=== PATIENT | female | born 1935 | race Caucasian/White ===

== ENCOUNTER 2023-10-16 07:15 | Emergency (ER) | payer MEDICARE, BC, SELFPAY ==
[2023-10-16 07:24] VITALS: BP 155/76; PULSE 61; RESP 16; TEMP 36; O2SAT 95; BMI 23.9
--- NOTE | 2023-10-16 07:57 | ED.GENADULT ---
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 According to her daughter she does have a history of occasional UTIs in the past. She has been having symptoms of dysuria and urgency ongoing for about 6 months. Apparently she had had a visit to her doctor in [place] a couple of weeks ago. She had a urinalysis that was reportedly ?normal. ? She has been referred to a urologist and has an appointment to see Urology at [facility] in [place] on October 24. She has otherwise been in her usual state of health lately. No new urinary symptoms, abdominal pain, flank pain, fever, chills, nausea, or vomiting. Since around midnight last night she has had bleeding. The patient thinks is probably vaginal bleeding. It sounds like she is passing tsp in table spoons of blood. Sometimes with clots. It is up to soak her panty liner, but not soaking through that. She is not lightheaded or dizzy. She is not anticoagulated she has a distant history of a hysterectomy done 30 or 40 years ago. She does not recall if she had her cervix removed. Related Data Home Medications ?Medication ?Instructions ?Recorded ?Confirmed alendronate 70 mg tablet 70 mg PO 10/16/23 amlodipine 5 mg tablet 5 mg PO DAILY 10/16/23 10/16/23 buspirone 15 mg tablet 15 mg PO DAILY 10/16/23 10/16/23 losartan 50 mg tablet 50 mg PO QAM 10/16/23 10/16/23 metoprolol tartrate 25 mg tablet 25 mg PO BID 10/16/23 10/16/23 paroxetine HCl 10 mg tablet 20 mg PO QAM 10/16/23 10/16/23 rosuvastatin 10 mg tablet 10 mg PO 3XW 10/16/23 10/16/23 Allergies Allergy/AdvReac Type Severity Reaction Status Date / Time No Known Drug Allergies Allergy Verified 10/16/23 08:35 PFSH PFSH Social History Smoking Status: Never smoker How often do you have a drink containing alcohol: never AUDIT-C Alcohol total score: 0 Non-prescribed substance use: denies use Exam Narrative: Exam Narrative: Constitutional: Appears well-developed and well-nourished. Alert. Conversant but a vague historian.. Non toxic. HENT: Head: Atraumatic. Nose: Nose normal. Mouth/Throat: Oral mucosa is clear and moist. no trismus. Pharynx normal. Tonsils symmetric. No tonsillar enlargement, erythema, or exudate. Eyes: Conjunctivae normal. EOM normal. Pupils equal, round, and reactive to light. No scleral icterus. Neck: Normal range of motion. Neck supple. No tracheal deviation present. Cardiovascular: Normal rate, regular rhythm. No gallop. No friction rub. No murmur heard. Symmetric radial artery pulses Pulmonary/Chest: Effort normal. No stridor. No respiratory distress. No wheezes. No rales. No rhonchi . No tenderness. Abdominal: Soft. Bowel sounds normal. No distension. No mass. No tenderness. No rebound. No guarding. No CVA tenderness. Healed abdominal scars from previous surgeries. Pelvic: Performed with female hand cultivator. No active bleeding. Vulva is externally normal. Labia majora and minora are normal. No active bleeding. Vaginal introitus is normal. I do not see any discharge, ulcers or lesions. External urethra appears normal. During the pelvic exam I did assist the nurse and do this drills straight cath and we were able to obtain frankly bloody urine through the catheter. At this point I think this is pretty indicative that the source of bleeding was not vaginal, but was in fact urinary. Perineum, gluteal cleft, external rectum normal. No sign of bleeding there. Musculoskeletal: RUE: Normal range of motion. No tenderness. No deformity LUE: Normal range of motion. No tenderness. No deformity RLE: Normal range of motion. No edema. No tenderness. No deformity LLE: Normal range of motion. No edema. No tenderness. No deformity Neurological: Alert and oriented to person, place, and time. Normal strength. CN II-VII intact. No sensory deficit. GCS eye subscore is 4. GCS verbal subscore is 5. GCS motor subscore is 6. Normal coordination Skin: Skin is warm and dry. No rash noted. No pallor. Normal capillary refill. Psychiatric: Normal mood. Normal affect. Const: Vital Signs, click to edit/add: Vital Signs - 24 hr 10/16/23 07:24 Temperature 96.8 F L Pulse Rate [Pulse Oximeter] 61 Respiratory Rate 16 Blood Pressure [Ri ght Upper Arm] 155/76 H Pulse Oximetry 95 Oxygen Delivery Me thod Room Air Course Vital Signs Vital signs: Initial Vital Signs Temperature 96.8 F L 10/16/23 07:24 Temperature Source Temporal Artery Scan 10/16/23 07:24 Pulse Rate 61 10/16/23 07:24 Respiratory Rate 16 10/16/23 07:24 Blood Pressure 155/76 H 10/16/23 07:24 Blood Pressure Mean 102 10/16/23 07:24 Pulse Oximetry 95 10/16/23 07:24 Oxygen Delivery Method Room Air 10/16/23 07:24 Vital Signs Temperature 96.8 F L 10/16/23 07:24 Pulse Rate 61 10/16/23 07:24 Respiratory Rate 16 10/16/23 07:24 Blood Pressure 155/76 H 10/16/23 07:24 Pulse Oximetry 95 10/16/23 07:24 Oxygen Delivery Method Room Air 10/16/23 07:24 Temperature 96.8 F L 10/16/23 07:24 Pulse Rate 61 10/16/23 07:24 Respiratory Rate 16 10/16/23 07:24 Blood Pressure 155/76 H 10/16/23 07:24 Pulse Oximetry 95 10/16/23 07:24 Oxygen Delivery Method Room Air 10/16/23 07:24 Medical Decision Making [facility] Narrative Medical decision making narrative: 87-year-old female presents to the ER today with concern for ?vaginal bleeding? that began overnight. Initially was unclear where the true source of the bleeding was. Patient was fairly sure this was not rectal bleeding, but was unsure if the bleeding was possibly urinary or vaginal. Differential would include vaginal sources such as vaginitis, external vulvar lesions, vulvar cancer, vaginal cancer, vaginal trauma. Patient has had a distant history of hysterectomy but is not sure if she has cervix still in place. Differential would potentially include bleeding cervical cancer as well. Also consider non vaginal causes of bleeding such as hematuria, rectal bleeding, hemorrhoid, fissure, lower GI bleed. She was hemodynamically stable. Afebrile. Nontoxic. Patient does have a bovine aortic valve but is not anticoagulated. She says she occasionally takes baby aspirin but no routine anti-platelet use. She describes probably tsp to tbsp of blood in her panty liners overnight. She is not describing a hemodynamically significant amount of blood loss. At this point only she needs laboratory workup to check hemoglobin. She denies any history of kidney problems. Pelvic exam revealed no external source of vaginal bleeding. During pelvic exam we did do a straight catheter and she did have frankly bloody urine through the catheter. No clots or signs that she is developing urinary obstruction. Actually, I suspect she had been having incontinent urinary leakage or night that caused the bloody urine to soak her panty liner. Urinalysis with micro shows hematuria as well as pyuria, bacteriuria, positive nitrate. In the setting highly indicative for UTI. Patient and her daughter recall that she has been on a couple of antibiotics recently for bladder infections but they are not sure which 1. I contacted the [facility] in [place]. They indicate that she was on Macrobid in July and Bactrim and June. No antibiotics filled IV since then. Based on that will put the patient on cephalexin 500 b.i.d. for 7 days (Inst[facility]) to treat UTI. Will send urine culture to confirm sensitivities. At this point she has he hematuria but no other symptoms from UTI. There is no evidence for pyelonephritis, urosepsis. At this point an oblique she needs laboratory workup, admission for IV antibiotics or CT scan. Patient and her daughter are agreeable to a plan for outpatient treatment. Precautions for return to the ER if she does develop worsening symptoms or signs of sepsis were carefully reviewed. They verbalized understanding. Incidentally, the pharmacist in [facility] in [place] indicates that she is on amlodipine 5 mg daily for high blood pressure. She had been on losartan and metoprolol for blood pressure. She felt a 90 day supply of those 2 medications in June but has not gotten them refilled. He wonders if she is due for refill or if her doctor may have stopped those medications. Discussed with the patient and her daughter. They are not sure. They will recheck with her primary care provider to have a blood pressure check and review their medication regimen within 1-2 weeks. Lab Data Labs: Lab Results 10/16/23 Range/Units Unknown Urine Color Red A (Yellow) Urine Appearance Cloudy A (Clear) Urine pH 8.5 (5.0-8.5) Ur Specific [place] 1.015 (1.000-1.030) Urine Protein 3+ A (Negative) Urine Glucose (UA) Negative (Negative) Urine Ketones Trace A (Negative) Urine Blood 3+ A (Negative) Urine Nitrite Positive A (Negative) Urine Bilirubin 2+ A (Negative) Urine Urobilinogen 1.0 (0.2-1.0) Ur Leukocyte Esterase 3+ A (Negative) Urine RBC >100 A (0-2) Urine WBC 10-25 A (0-5) Ur Squamous Epith Cells Few (None-Few) Urine Bacteria Moderate A (None) Discharge Plan Discharge Clinical Impression: Acute UTI, Hematuria Patient Disposition: Home, Self-Care Condition: Stable Instructions: Hematuria (ED), Urinary Tract Infection in Older Adults (ED) Additional Instructions: As we discussed, we suspect that the bloody or seeing in your urine is being caused by a bladder infection. We are going to treat this infection with a course of antibiotics. Take the cephalexin twice a day for 7 days. We will send urine culture from your sample today. If the lab grows and unusual strain of bacteria that needs a different antibiotic to treat it, we will contact you by phone. If you have any worsening symptoms such as abdominal pain, fever chills, vomiting, weakness, back pain or flank pain, or heavier bleeding, return to the ER immediately. Please recheck with your regular doctor within 1-2 weeks. Ask your doctor to recheck your blood pressure medication regimen. The [facility] tells me that you have 2 blood pressure medications (losartan and metoprolol) that are overdue for a refill. They say that you filled a 90 day supply in June. Continue on her other regular medications for now. Prescriptions: No Action losartan 50 mg tablet 50 mg PO QAM paroxetine HCl 10 mg tablet 20 mg PO QAM alendronate 70 mg tablet 70 mg PO amlodipine 5 mg tablet 5 mg PO DAILY buspirone 15 mg tablet 15 mg PO DAILY rosuvastatin 10 mg tablet 10 mg PO 3XW metoprolol tartrate 25 mg tablet 25 mg PO BID Stand Alone Forms: [employer] Info Instructions
[2023-10-16 08:40] LABS: Appearance Urine Cloudy (Clear); Bilirubin Urine 2+ (Negative); Blood Urine 3+ (Negative); Color Urine Red (Yellow); Glucose Urine Negative (Negative); Ketones Urine Trace (Negative); Leukocyte Esterase Urine 3+ (Negative); Nitrite Urine Positive (Negative); Protein Urine 3+ (Negative); Specific Gravity Urine 1.015 (1.000-1.030); pH Urine 8.5 (5.0-8.5)
[2023-10-16 08:55] LABS: Bacteria Urine Moderate; RBC Urine >100 (0-2); Squamous Epithelial Cell Urine Few (None-Few)
== END 2023-10-16 09:47 | disposition home or self-care (01) ==
LOC: ED 09:38
PROVIDERS: Emergency Provider Emergency Medicine
DX: N39.0 Urinary tract infection, site not specified (principal); R31.9 Hematuria, unspecified
CPT/HCPCS: 51701; 81001; 87086; 99283

== ENCOUNTER 2024-03-13 14:00 | Outpatient (RCR) | payer MEDICARE, BC, SELFPAY ==
[2024-03-09 14:20] VITALS: BP 129/72; PULSE 68; RESP 16; TEMP 36.6; O2SAT 97
[2024-03-09 15:10] LABS: Blood Urea Nitrogen* 21 mg/dL (7-30); Creatinine* 0.7 mg/dL (0.5-1.5); Estimated Glomerular Filt Rate 84 ml/min
[2024-03-10 14:02] VITALS: BP 137/73; PULSE 68; RESP 18; TEMP 37.1; O2SAT 96
[2024-03-10 14:44] VITALS: BP 133/83; PULSE 61; RESP 18; O2SAT 95
[2024-03-11 14:18] VITALS: BP 153/74; PULSE 60; RESP 16; TEMP 36.3; O2SAT 96
[2024-03-12 13:53] VITALS: BP 128/73; PULSE 60; RESP 16; TEMP 36.2; O2SAT 95
[2024-03-13 14:04] VITALS: BP 123/71; PULSE 67; RESP 16; TEMP 36; O2SAT 94
== END 2024-09-05 23:59 | disposition home or self-care (01) ==
LOC: CCIC 14:00
PROVIDERS: Visit Provider Clinical Nurse Specialist
DX: N39.0 Urinary tract infection, site not specified (principal)
CPT/HCPCS: 36415; 82565; 84520; 96365; G0463; J3260